=== PATIENT | female | born 1965 | race Caucasian/White ===

== ENCOUNTER → 2023-12-01 14:49 | Outpatient (REF) | payer OTHER, SELFPAY | LOC: HWWDC 14:49 | PROVIDERS: ATTENDING PHYSICIAN Obstetrics & Gynecology Gynecology; FAMILY PHYSICIAN Nurse Practitioner | DX: Z12.31 Encounter for screening mammogram for malignant neoplasm of breast (principal) | CPT/HCPCS: 77063; 77067 ==

== ENCOUNTER 2024-10-02 06:26 | Day surgery (SDC) | payer OTHER, SELFPAY ==
[2024-09-29 12:23] LABS: Hematocrit 41.7 % (37.0-47.0); Hemoglobin 13.2 g/dL (12.0-16.0); Mean Corp Hgb Conc. 31.7 g/dL (33.0-37.0); Mean Corpuscular Volume 91.2 fL (81.0-99.0); Nucleated Red Blood Cells % 0 %; Platelet Count 367 10^3/uL (130-400); Red Cell Dist. Width 13.4 % (11.5-14.5)
[2024-09-29 12:49] LABS: Blood Urea Nitrogen 15 mg/dl (7-17); Calcium 9.7 mg/dl (8.4-10.2); Carbon Dioxide 31 mmol/L (22-30); Chloride 109 mmol/L (98-107); Glucose 99 mg/dl (70-99); Potassium 5.5 mmol/L (3.5-5.1); Sodium 142 mmol/L (135-145); eGFR > 60.00
--- NOTE | 2024-10-01 08:37 | PTCARENOTE ---
Patients 09/29 hansa Hooker @ Dr[address] James office notified
--- NOTE | 2024-10-01 09:06 | PTCARENOTE ---
Patients 09/29 potassium 5.5, ECG abnormal- reviewed by Sr. Emerson- no additional interventions indicated
[2024-10-02] VITALS (11 sets, daily range): BP systolic 84–177; BP diastolic 43–76; BMI 28.9
[2024-10-02] MEDS: NORMOSOL-R/PLASMALYTE-A 1000 IV (10:00)
[2024-10-02] MEDS: HEPARIN 5000 UNITS SC (10:00)
[2024-10-02] MEDS: DILAUDID 0.25 MG IV (15:13)
--- NOTE | 2024-10-02 15:47 | SUR.PHASEI ---
Report from chary JORGENSEN Dr in
--- NOTE | 2024-10-02 16:03 | SUR.PHASEI ---
snoring lightly, vss
== END 2024-10-02 17:55 | disposition home or self-care (01) ==
LOC: SDS 06:26
PROVIDERS: ATTENDING PHYSICIAN Obstetrics & Gynecology; FAMILY PHYSICIAN Nurse Practitioner; REFERRING PHYSICIAN Obstetrics & Gynecology Gynecology
DX: N81.3 Complete uterovaginal prolapse (principal); N39.3 Stress incontinence (female) (male); N36.41 Hypermobility of urethra
CPT/HCPCS: 57425; 58542; 57250; 36415; 80048; 85025; 86850; 86900; 86901; 88305; 93005; C1713; C1763